=== PATIENT | female | born 1970 | race Caucasian/White ===

== ENCOUNTER 2019-04-12 10:15 | Inpatient (IN) | payer OTHER ==
[~2019-04-12] VITALS: Ht 162.6 cm; Wt 72.6 kg
[2019-04-12] MEDS ORDERED: SYNTHROID137 MCG PO (12:12)
== END 2019-04-17 16:48 | disposition home or self-care (01) | DRG 743 ==
LOC: SURH 04-14 10:15 → OB/GYN 04-14 10:31 → O/R 04-14 10:31 → SURH 04-14 20:30 → OB/GYN 04-14 22:14
PROVIDERS: ADMIT Obstetrics & Gynecology
PROC: 0UT70ZZ Resection of Bilateral Fallopian Tubes, Open Approach (ICD-10-PCS; 2019-04-14)
PROC: 0UT90ZZ Resection of Uterus, Open Approach (ICD-10-PCS; principal; 2019-04-14 20:30)
DX: N80.0 Endometriosis of uterus (principal); D25.0 Submucous leiomyoma of uterus; D25.1 Intramural leiomyoma of uterus; D25.2 Subserosal leiomyoma of uterus; N83.11 Corpus luteum cyst of right ovary; E03.8 Other specified hypothyroidism; Z90.49 Acquired absence of other specified parts of digestive tract